=== PATIENT | male | born 2000 | race Caucasian/White ===

== ENCOUNTER 2022-03-29 17:35 | Emergency (ER) | payer OTHER, SELFPAY ==
--- NOTE | ~2022-03-29 | XR_ITS ---
EXAMINATION: XR hand RT min 3V DATE: 03/29/2022 18:24 INDICATION: Right hand injury. TECHNIQUE: 3 views of right hand were obtained. COMPARISON: None. FINDINGS: There is an intra-articular fracture of palmar/radial base of fifth metacarpal. The distal fracture fragment demonstrates 4 mm posterior displacement and palmar angulation. Other joint spaces are normal. IMPRESSION: 1. Displaced intra-articular fracture of base of fifth metacarpal. Reviewed, dictated and finalized at location A. [employer]
[2022-03-29 17:46] VITALS: BP 140/97; PULSE 100; RESP 16; TEMP 36.9; O2SAT 100
--- NOTE | 2022-03-29 18:00 | ED.UPPEXIN ---
HPI - Extremity Injury (Upper) General Chief Complaint: Extremity Injury, Upper Stated Complaint: Right Wrist Injury Source: patient, family and RN notes reviewed History of Present Illness HPI narrative: 21-year-old male presents to urgent care with mom at bedside. Patient states approximately 5 days ago he punched a wooden door with his right hand. Patient has been having pain and swelling to his right hand ever since. Patient reports tingling at the time of incident but no longer. Denies any wrist pain or any other injuries. Patient has been placing ice on his hand with moderate relief. Some parts of this dictation were generated by voice recognition software and may contain typographical and/or grammatical inaccuracies. Related Data Home Medications Medication Instructions Recorded Confirmed No Home Medications 03/29/22 03/29/22 Allergies Allergy/AdvReac Type Severity Reaction Status Date / Time No Known Allergies Allergy Verified 03/29/22 17:48 Review of Systems Review of Systems: CONSTITUTIONAL: Denies fever, chills, or sweats. EYES: Denies visual changes, redness, or discharge. ENT: Denies otalgia and sore throat CARDIOVASCULAR: Denies chest pain, palpitations, or edema. RESPIRATORY: Denies cough or dyspnea. GASTROINTESTINAL: Denies abdominal pain, nausea, vomiting, or diarrhea. GENITOURINARY: Denies dysuria or hematuria. SKIN: Denies rash or itching. MUSCULOSKELETAL: Right hand pain and swelling NEUROLOGIC: Denies headache, numbness, or weakness. PMFSH Comments At the time of my signature, I reviewed and agree with the nursing past medical, surgical, social, and family history. There is no relevant family history pertinent to the patient complaint. Exam Narrative: GENERAL: This is a well-nourished, well-developed patient, in no apparent distress. HEAD: normocephalic, atraumatic. EYES: Sclera clear/white. Vision is grossly intact. EARS: External ears normal, auditory canals clear and without drainage, TMs normal without perforation. Hearing grossly intact. NOSE: External nose normal with no obvious nasal discharge, nares without redness, no rhinorrhea. CARDIOVASCULAR: Regular rate RESPIRATORY: No respiratory distress SKIN: warm, intact with no suspicious lesions or rash, good texture and turgor. NEURO: awake, alert, and oriented to person, place and time. There were no obvious focal neurologic abnormalities. EXTREMITIES: Right dorsal hand pain and swelling overlying the 5th metacarpal Course Course Level of Care: Express Care Visit Vital Signs Vital signs: Vital Signs Temperature 98.5 F 03/29/22 17:46 Pulse Rate 100 03/29/22 17:46 Respiratory Rate 16 03/29/22 17:46 Blood Pressure 140/97 H 03/29/22 17:46 Pulse Oximetry 100 03/29/22 17:46 Oxygen Delivery Room Air 03/29/22 17:46 Temperature 98.5 F 03/29/22 17:46 Pulse Rate 100 03/29/22 17:46 Respiratory Rate 16 03/29/22 17:46 Blood Pressure 140/97 H 03/29/22 17:46 Pulse Oximetry 100 03/29/22 17:46 Oxygen Delivery Room Air 03/29/22 17:46 Reviewed MDM - Extremity Injury (Upper) MDM Narrative Medical decision making narrative: Use the rice method at home. Follow-up with plastics/hand specialist. May take ibuprofen and Tylenol if needed for pain. Differential Diagnosis Differential diagnosis: Likely fracture of hand and other (Dislocation, sprain) Imaging Data Radiologist's impression: [facility] [place] [id number] [employer] [place] [id number] XRay Report Signed Patient: Ti Ruiz : 2000 MR#: [id number] Age/Sex: 21 / M Acct:[id number] Loc: [facility]? ? ADM Date: 03/29/22Attending Dr: Ordering Physician: Mitra Hooks APRN Date of Service: 03/29/22 Procedure(s): XR hand RT min 3V Accession Number(s): [id number] cc: Martha, Mitra Hernandez APRN~ EXAMINATION: XR hand RT min 3V DATE: 03/29/2022 18:
== END 2022-03-29 19:06 | disposition home or self-care (01) ==
PROVIDERS: Emergency Provider Nurse Practitioner Family; PCP Internal Medicine
DX: S62.336A Displaced fracture of neck of fifth metacarpal bone, right hand, initial encounter for closed fracture (principal); W22.8XXA Striking against or struck by other objects, initial encounter
CPT/HCPCS: 29125; 73130; 99214; A4565; G0463